=== PATIENT | female | born 1980 | race Caucasian/White ===

== ENCOUNTER 2017-02-18 02:48 | Emergency (ER) | payer BC ==
[~2017-02-18] VITALS: Ht 170.2 cm; Wt 80.0 kg
[~2017-02-18 02:48] MED LIST: HYDR-5688 PO; MTR600X PO
[2017-02-18 02:50] VITALS: Ht 170.2 cm; Wt 80.0 kg
[2017-02-18 03:07] VITALS: TEMP 36.6
[2017-02-18] MEDS ORDERED: KETOROLAC TROMETHAMINE 60 MG/2 ML VIAL IM STA (03:18)
--- NOTE | 2017-02-18 03:44 | EMERGENCY ROOM VISIT NOTE ---
History Report prepared by Martell: Luis Brunson Under the Supervision of: Dr. Jacquelyn Cobos D.O. First contact with patient: 03:06 Chief Complaint: LEG PAIN,LEG INJURY Stated Complaint: RIGHT LEG PAIN History of Present Illness The patient is a 36 year old female who presents to the Emergency Room with complaints of worsening, excruciating right leg pain beginning 5 hours ago. The patient states that she has been experiencing lower back pain for the past 10 days and has been taking pain medication. She reports that her pain radiates through her entire leg. The patient notes that she took naproxen so she would be able to sleep. She states she was not able to find a comfortable position, but she was able to fall asleep. The patient reports that she woke 2 hours ago and her entire leg was throbbing. She notes the pain was intense to the point she thought she was going to pass out. The patient states that she took 3 ibuprofen tablets so she would be able to drive herself here. She reports that she has a history of two bulged discs per MRI a long time ago. 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 She states that after she stops walking, her leg goes numb. The patient reports that she had similar symptoms a year ago, but it was not as painful. She denies abdominal pain and any history of chronic illnesses. Source of History: patient Onset: 5 hours ago Symptom Intensity: excruciating Quality: other (throbbing) Timing: worsening Associated Symptoms: + back pain, + numbness, No abdominal pain Review of Systems See HPI for pertinent positives & negatives. A total of 10 systems reviewed and were otherwise negative. Past Medical & Surgical The patient denies a history of any chronic illnesses. Family History Heart disease Social History Smoking Status: Never Smoker Marital Status: Housing Status: lives with family Occupation Status: employed Current/Historical Medications Scheduled B-Complex Vitamins (Vitamin B Complex), 1 TAB PO DAILY Cholecalciferol (Vitamin D3), 2,000 UNITS PO DAILY Magnesium (Chelated Magnesium), 200 MG PO DAILY Scheduled PRN Oxycodone/Acetaminophen 5MG/325MG (Percocet 5MG/325MG), 2 TABLETS PO Q4H PRN for Pain Allergies Coded Allergies: Latex (Verified Allergy, Mild, ITCHING IF IN CONTACT FOR TOO LONG, 02/12/15 ) Physical Exam Vital Signs Date Time Temp Pulse Resp B/P (MAP) Pulse Ox O2 Delivery O2 Flow Rate FiO2 02/18/17 05:01 77 18 110/57 97 02/18/17 03:07 36.6 105/80 02/18/17 02:50 97 22 97 Room Air Physical Exam General: Extremely uncomfortable, unable to sit down for the physical exam. HEENT: Head - normocephalic and atraumatic Pupils are equal, round, and reactive to light. Extraocular eye muscles are intact, and sclera are anicteric. Nose - moist nasal mucosa without discharge. Mouth - moist buccal mucosa. Oropharynx is nonerythematous and there is no tonsillar exudate or edema noted. Neck: Supple; no JVD, nuchal rigidity, cervical lymphadenopathy. Heart: Regular rate and rhythm. There is a normal S1 and S2 with no murmurs, clicks, or gallops appreciated. Lungs: Clear to auscultation bilaterally with no wheezes, rales, or rhonchi. Abdomen: Soft, completely nontender, nondistended, with good bowel sounds. There are no palpable pulsatile masses or hepatosplenomegaly. There is no guarding, rigidity, or rebound noted. Buttock: Exquisite tenderness over the right piriformis muscle. Extremities: No evidence of cyanosis, clubbing, or edema. There are easily palpable peripheral pulses. Skin: warm and dry with good turgor and no rashes. Neurological: Normal and equal strength to the lower extremities. Medical Decision & Procedures Medications Administered Medications (Trade) Dose Ordered Sig/Mello Route Start Time Stop Time Status Last Admin Dose Admin Ketorolac Tromethamine (Toradol Inj) 60 mg NOW STAT IM 02/18/17 03:18 02/18/17 03:19 DC 02/18/17 03:25 60 MG Oxycodone/ Acetaminophen (Percocet 5/ 325MG Home Pack) 1 homepack UD ONCE PO 02/18/17 04:30 02/18/17 04:31 DC 02/18/17 04:30 1 HOMEPACK Procedure 0318: Ordered Toradol Inj 60mg IM 0430: Ordered Oxycodone/Acetaminophen 1 homepack PO ED Course 0310: Past medical records reviewed. The patient was evaluated in room A02. A complete history and physical exam was performed. 0318: Ordered Toradol Inj 60mg IM 0410: The nurse reports that patient would feel better at home on her couch with stronger pain medications. 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 0422: I reevaluated the patient. She is still having severe pain. I asked her to stay for IV pain management, but she reports she cannot because her kids are at home. I tested her strength and sensation in her feet; they were normal. 0430: Ordered Oxycodone/Acetaminophen 1 homepack PO 0447: I reevaluated the patient, and she changed her mind. She would like a muscle relaxer instead of the Percocet. 0457: After discussing treatment options with the patient, she has agreed to go with the Percocet. I advised her that a muscle relaxer is probably not going to help her. Medical Decision The patient is a 36 year old female who presents to the ED with right leg pain. Differential diagnosis includes sciatica, lumbar radiculopathy, piriformis syndrome, herniated lumbar disk. The patient has been having mild to moderate discomfort in her low back for the past 10 days for which she has been taking naproxen. However, yesterday, the patient felt severe discomfort over the entire right leg. This pain was easily reproducible with palpation over the right piriformis muscle. I believe that the patient is suffering from an acute episode of sciatica. If the pain persists, the patient will need a repeat MRI of lumbar spine to rule out an acute disc herniation. The patient has followed up with Dr. Feliz in the past so I asked her to do the same again. Otherwise, the patient can return to the emergency department. She was told to return immediately if she developed any weakness in her right lower extremity ordered difficulty with urination. Impression Primary Impression: Sciatica Scribe Attestation The scribe's documentation has been prepared under my direction and personally reviewed by me in its entirety. I confirm that the note above accurately reflects all work, treatment, procedures, and medical decision making performed by me. Departure Information Dispostion Home / Self-Care Prescriptions Oxycodone/Acetaminophen 5MG/325MG (PERCOCET 5MG/325MG) Tab 2 TABLETS PO Q4H Y for Pain, #20 TAB Prov: Jacquelyn Cobos D.O. 02/18/17 Referrals No Doctor, Assigned (PCP) Forms HOME CARE DOCUMENTATION FORM, IMPORTANT VISIT INFORMATION Patient Instructions ED Sciatica, [facility] Additional Instructions Rest. Take percocet - 2 tabs. every 6 hours for pain. This may cause constipation If the pain is not improving, please follow up with Dr. Feliz. Return to the ER if you develop any worsening pain or weakness in the leg Problem Qualifiers Primary Impression: Sciatica Laterality: right Qualified Codes: M54.31 - Sciatica, right side
[2017-02-18] MEDS ORDERED: MAGN1TAB16 PO (04:21)
[2017-02-18] MEDS ORDERED: B-COTAB18 PO (04:22)
[2017-02-18] MEDS ORDERED: CHOL20007 PO (04:23)
[2017-02-18] MEDS ORDERED: PERCOCET HOME PACK PO ONE (04:30)
[2017-02-18] MEDS ORDERED: OXYC-57 PO (04:31)
[2017-02-18 05:01] VITALS: BP 110/57; PULSE 77; O2SAT 97
== END 2017-02-18 05:01 | disposition home or self-care (01) ==
LOC: C.EDB 02:49 → C.EDA 05:01
DX: M54.31 Sciatica, right side (principal)

== ENCOUNTER → 2017-03-02 | Outpatient (CLI) | payer BC ==
[~2017-03-02] MED LIST changes: +B-COTAB18 PO; +CHOL20007 PO; -HYDR-5688 PO; +MAGN1TAB16 PO; -MTR600X PO; +OXYC-57 PO
--- NOTE | 2017-03-02 13:27 | DIAGNOSTIC IMAGING REPORT ---
MRI OF THE LUMBAR SPINE WITHOUT IV CONTRAST CLINICAL HISTORY: Low back pain and right lower extremity radiculopathy. COMPARISON STUDY: Abdominal CT dated 05/26/2015. MRI of the lumbar spine dated 03/28/2013. TECHNIQUE: MRI of the lumbar spine is performed utilizing various T1 and T2-weighted sequences in the axial and sagittal planes. IV contrast was not administered for this examination. The examination is modestly degraded by motion artifact. FINDINGS: Lumbar spine: Vertebral body height and alignment are maintained throughout the lumbar spine. Chronic degenerative endplate change and sclerosis is seen at L5-S1. No marrow edema is identified. No destructive bony lesion is seen. The transverse and spinous processes are intact as visualized. There is no evidence of spondylolysis. Intervertebral discs: There is mild degenerative disc desiccation throughout the lumbar spine. Mild to moderate loss of height is seen at L5-S1. The remaining disc spaces are preserved. Spinal cord: The visualized spinal cord is normal in morphology and signal intensity. The conus medullaris terminates at the level of L1. The nerve roots of the cauda equina are normal in morphology. L1-L2: Unremarkable. L2-L3: Unremarkable. L3-L4: There is minimal disc bulge with annular fissure. The central canal and neural foramina are widely patent. L4-L5: There is posterior disc bulge eccentric to the left with annular fissure. There is no significant acquired compromise of the central canal. There is mild left-sided subarticular stenosis, and the disc bulge abuts the transiting left L5 nerve root and may also abut the exiting left L4 nerve root. The neural foramina are patent. L5-S1: There is a large disc herniation eccentric to the right. An extruded fragment measures up to 1.4 cm as seen on sagittal image #6. This impinges on the transiting right-sided sacral nerve roots. This also causes mild right-sided subarticular stenosis. The neural foramina are patent. Mild facet arthropathy is of no consequence. Sacrum: The visualized sacrum is normal in morphology and signal intensity. Soft tissues: The paraspinous soft tissues are within normal limits. The partially visualized retroperitoneal structures are grossly unremarkable but incompletely evaluated. IMPRESSION: 1. There is a large disc herniation eccentric to the right at L5-S1 with an extruded fragment. This impinges on the transiting right-sided sacral nerve roots. 2. Mild degenerative disc disease at additional levels as detailed above. See discussion for level by level analysis. 3. Chronic degenerative endplate changes noted at L5-S1. Dictated: 03/02/2017 1:01 PM Transcribed: 03/02/2017 1:26 PM [email or web address] Electronically signed by: Edvin Bagley M.D. 03/02/2017 1:34 PM Dictated Date/Time: 03/02/2017 1:01 PM
== END | disposition home or self-care (01) ==
LOC: C.MRI 10:41
PROVIDERS: ATTEND Physician Assistant
DX: M51.27 Other intervertebral disc displacement, lumbosacral region (principal)

== ENCOUNTER → 2017-04-18 | Outpatient (CLI) | payer BC ==
[~2017-04-18] MED LIST changes: +GADAVIST IV PRN
--- NOTE | 2017-04-18 17:35 | DIAGNOSTIC IMAGING REPORT ---
LUMBAR SPINE COMBINATION HISTORY: Lumbar radiculopathy. Postoperative LUMBAR RADICULOPATHY TECHNIQUE: Multiplanar multisequence MRI of the lumbar spine was performed both before and after the intravenous administration of contrast. COMPARISON: 03/02/2017 03/28/2013 FINDINGS: For the purpose of the report the L5-S1 disc space will be located on axial image 23 of 25. Signal characteristics the vertebral bodies are unremarkable. There are findings of several Schmorl's nodes of the vertebral endplates. There is mild degenerative disc desiccation from L3 through S1. All findings are similar compared to the prior exam. L1-L2: No significant central canal or neural foraminal narrowing. L2-L3: No significant central canal or neural foraminal narrowing. L3-L4: Minimal broad-based disc bulge. Minimal impact anterior thecal sac. Neuroforamina are patent bilaterally. L4-L5: Mild broad-based disc bulge. No significant change from the prior study. Minimal impact anterior thecal sac. L5-S1: Minimal disc bulge. Postprocedural scar anterior posterior and lateral to the thecal sac on the right. Prior right hemilaminotomy. IMPRESSION: 1. Hemilaminotomy on the right at L5-S1 with no residual disc herniation or significant spinal stenosis. 2. Postoperative scar occupying the right neuroforamina and fascial planes surrounding the thecal sac on the right. 3. Several slight disc bulges centrally unchanged from prior exams. 4. No major compromise of the spinal canal. The above report was generated using voice recognition software. It may contain grammatical, syntax or spelling errors. Electronically signed by: Saji Carrillo M.D. 04/18/2017 5:34 PM Dictated Date/Time: 04/18/2017 5:21 PM
== END | disposition home or self-care (01) ==
LOC: C.MRI 16:28
PROVIDERS: ATTEND Orthopaedic Surgery Orthopaedic Surgery of the Spine
DX: M54.16 Radiculopathy, lumbar region (principal); Z98.890 Other specified postprocedural states; M51.26 Other intervertebral disc displacement, lumbar region

== ENCOUNTER → 2017-04-19 | Outpatient (CLI) | payer BC ==
[~2017-04-19] MED LIST changes: -GADAVIST IV PRN
--- NOTE | 2017-04-19 09:59 | DIAGNOSTIC IMAGING REPORT ---
ULTRASOUND RIGHT LOWER EXTREMITY VENOUS CLINICAL HISTORY: Right leg pain and swelling. COMPARISON STUDY: Bilateral lower extremity venous ultrasound dated 04/05/2013. TECHNIQUE: Real-time, grayscale, and color Doppler sonography of the deep veins of the right lower extremity was performed from the inguinal crease to the calf. Compression and augmentation were utilized. FINDINGS: There is no sonographic evidence of deep venous thrombosis identified in the right lower extremity. The common femoral, superficial femoral, and popliteal veins are patent and normally compressible. The greater saphenous vein and the profunda femoris vein at the junction with the common femoral vein are clear. The visualized calf veins are patent. IMPRESSION: There is no sonographic evidence of deep venous thrombosis identified in the right lower extremity. Electronically signed by: Edvin Bagley M.D. 04/19/2017 9:58 AM Dictated Date/Time: 04/19/2017 9:58 AM
== END | disposition home or self-care (01) ==
LOC: C.ULTRBC 09:21
PROVIDERS: ATTEND Physician Assistant
DX: M79.661 Pain in right lower leg (principal)

== ENCOUNTER → 2017-12-26 | Outpatient (CLI) | payer BC ==
[~2017-12-26] MED LIST changes: -OXYC-57 PO
[2017-12-26 12:53] LABS: BASO % 0.2 %; BASO ABS # 0.01 K/uL (0-0.2); EOS ABS # 0.05 K/uL (0-0.5); HEMATOCRIT 41.1 % (37-47); HEMOGLOBIN 13.5 g/dL (12.0-16.0); LYMPH % 29.9 %; LYMPH ABS # 1.44 K/uL (1.2-3.4); MEAN CELL VOLUME 93.2 fL (80-100); MEAN CORPUSCULAR HEMOGLOBIN 30.6 pg (25-34); MEAN CORPUSCULAR HGB CONC 32.8 g/dl (32-36); MEAN PLATELET VOLUME 11.4 fL (7.4-10.4); MONO % 5.2 %; MONO ABS # 0.25 K/uL (0.11-0.59); NEUT % 63.7 %; NEUT ABS # 3.06 K/uL (1.4-6.5); PLATELET COUNT 219 K/uL (130-400); RED CELL DISTRIBUTION WIDTH CV 12.8 % (11.5-14.5); RED CELL DISTRIBUTION WIDTH SD 43.1 fL (36.4-46.3); WHITE BLOOD COUNT 4.81 K/uL (4.8-10.8)
[2017-12-26 13:15] LABS: ALBUMIN 3.8 gm/dl (3.4-5.0); ALKALINE PHOSPHATASE 61 U/L (45-117); ALT/SGPT 24 U/L (12-78); AST/SGOT 14 U/L (15-37); BLOOD UREA NITROGEN 20 mg/dl (7-18); CALCIUM 8.7 mg/dl (8.5-10.1); CARBON DIOXIDE 24 mmol/L (21-32); CREATININE 0.81 mg/dl (0.60-1.20); GLUCOSE 83 mg/dl (70-99); SODIUM 137 mmol/L (136-145); TOTAL PROTEIN 8.2 gm/dl (6.4-8.2)
[2017-12-26 13:18] LABS: MONOSPOT NEG (NEG)
[2017-12-28 15:38] LABS: EBV EARLY ANTIGEN AB < 9.00 U/ML
== END | disposition home or self-care (01) ==
LOC: C.LAB 11:49
PROVIDERS: ATTEND Family Medicine
DX: M79.1 Myalgia (principal); R53.1 Weakness; R53.83 Other fatigue